=== PATIENT | female | born 1960 | race Caucasian/White ===

== ENCOUNTER 2017-11-30 08:41 | Outpatient (CLI) | payer BC ==
--- NOTE | 2017-11-30 11:00 | RAD ---
RIGHT HIP TWO VIEWS: History: 56-year-old female with history of right hip pain. FINDINGS: Mild degenerative changes without acute fracture or dislocation. Post-operative changes in the lumbar spine. IMPRESSION: Mild degenerative changes right hip joint without fracture or dislocation. POS: OFF
== END 2017-11-30 08:42 | disposition home or self-care (01) ==
LOC: RAD 08:41
PROVIDERS: ATTEND Nurse Practitioner Family
DX: M25.551 Pain in right hip (principal); M16.11 Unilateral primary osteoarthritis, right hip
CPT/HCPCS: 80307; 80326; 80331; 80334; 80337; 80341; 80344; 80346; 80348; 80353; 80354; 80355; 80357; 80358; 80359; 80360; 80361; 80364; 80365; 80366; 80367; 80368; 80370; 80371; 80372; 80377

== ENCOUNTER 2018-03-12 11:47 | Inpatient (IN) | payer BC ==
[2018-03-12] MEDS ORDERED: Nitroglycerin 2% Ointment 1 INCH/1 GM Packet ONE (12:04)
[2018-03-12] MEDS ORDERED: Aspirin 325 MG TAB ONE (12:06)
--- NOTE | 2018-03-12 12:16 | RAD ---
PROTABLE AP CHEST RADIOGRAPH: Date: 03-12-18 History: Chest pain. Comparison: 02-23-16 FINDINGS: Cardiac silhouette and pulmonary vasculature are within normal limits. Lungs are clear. Dorsal column stimulator leads overlie the thoracic spine on today's exam. No other interval change. IMPRESSION: No acute cardiopulmonary process. POS: [facility]
[2018-03-12 12:18] LABS: #Lymphocytes 1.6 thou/uL (1.20-3.40); #Monocytes 0.4 thou/uL (0.11-0.59); #Neutrophils 2.2 thou/uL (1.40-6.50); %Basophils 1.2 % (0.0-1.0); %Monocytes 8.7 % (0.0-10.0); %Neutrophils 51.1 % (42.0-75.0); Hemoglobin 14.6 g/dL (12.0-16.0); Mean Corpuscular HGB CONC 33.8 g/dL (32.0-36.0); Mean Corpuscular Hemoglobin 33.8 pg (27.0-31.0); Mean Corpuscular Volume 99.9 fL (78.0-98.0); Mean Platelet Volume 6.5 fL (7.4-10.4); Platelet Count 226 thou/uL (130-400); RBC Distribution Width 11.8 % (11.5-14.5); Red Blood Cell (RBC) Count 4.31 mill/uL (4.20-5.40); White Blood Cell (WBC) Count 4.3 thou/uL (4.8-10.8)
[2018-03-12 12:38] LABS: ALT (SGPT) 24 U/L (8-55); AST (SGOT) 22 U/L (5-34); Albumin 4.8 g/dL (3.5-5.0); Alkaline Phosphatase 68 U/L (40-150); Anion Gap 12 mmol/L (10-20); BUN (Urea Nitrogen) 14 mg/dL (9.8-20.1); Bilirubin, Total 0.6 mg/dL (0.2-1.2); Calc. Creatinine Clearance 0 mL/min (70-130); Calcium 9.7 mg/dL (7.8-10.44); Carbon Dioxide 26 mmol/L (22-29); Chloride 101 mmol/L (98-107); Estimated GFR-MDRD 72; Globulin 2.8 g/dL (2.4-3.5); Glucose 86 mg/dL (70-105); Potassium 3.5 mmol/L (3.5-5.1); Protein, Total 7.6 g/dL (6.0-8.3); Sodium 135 mmol/L (136-145)
[2018-03-12 12:42] LABS: CKMB 1.2 ng/mL (0-6.6); Troponin I Less than 0.010 ng/mL (< 0.028)
[2018-03-12] MEDS ORDERED: Labetalol HCl 100 MG/20 ML VIAL ONE (12:51)
[2018-03-12 16:02] LABS: Troponin I Less than 0.010 ng/mL (< 0.028)
--- NOTE | 2018-03-12 18:16 | CON ---
DATE OF CONSULTATION: 03/12/2018 REASON FOR CONSULTATION: Chest pain and hypertension. HISTORY OF PRESENT ILLNESS: Mrs. Salinas is a very pleasant 57-year-old white female who comes to [facility] for chest pain. She was actually seen by myself in the office for the first time yesterd ay. She came in for evaluation of hypertension and episodes of chest pain similar to the one she had today. She had been noticing episodes of a stabbing pain in the epigastric area that lasted for abo ut 5 or 10 minutes at a time. The longest one was about 15 minutes. She recently changed PCP's and when she got all her information, she noticed that her blood pressure had been high for a long time a nd nobody had ever told her she had hypertension or treated her for it. On my evaluation yesterday, her blood pressure was 160/105. I rechecked it before the end of the visit and it was down to the 14 0/90 range. She was pain free at that time. We ordered workup for her heart and started her on sam nopril 5 mg daily. She took her first pill this morning and her blood pressure was in the 140s. She was at work, answering some emails nothing out of the ordinary and felt the sudden onset of this sta bbing pain again in the epigastrium. She had been advised yesterday that the pain lasted more than 3 0 minutes to come to the hospital. She started the time at that time and noted that the pain was not going away by min #30. She asked her friend to drive her to the ER, so she was brought in for furth er evaluation. Here, she was found to have very high blood pressures. She was in the 180/150 range and before she received IV labetalol. She had nitro paste already placed and this dropped her blood pressure in the 150s over 100s and she has been feeling much better ever since. She currently denies any chest pain, tightness, pressure, no shortness of breath. She stated by the time she came to the ER, her pain was much better. PAST MEDICAL HISTORY: 1. Newly-diagnosed hypertension. 2. Hyperlipidemia. 3. Osteoarthritis. 4. Gastroesophageal reflux disease. PAST SURGICAL HISTORY: 1. Appendectomy. 2. Cholecystectomy. 3. Tonsillectomy. 4. Lumbar disk replacement. OUTPATIENT MEDICATIONS: Include, 1. Lisinopril 5 mg daily, which was started on her yesterday morning. 2. Aminophylline. 3. Symbicort. 4. Tizanidine 4 mg daily. 5. Prilosec 20 mg a day. 6. [place] 3 fish oil. 7. Ponce 10/325 p.r.n. 8. Celebrex 200 mg a day. 9. Azelastine. ALLERGIES: IODINE and CLINDAMYCIN. REVIEW OF SYSTEMS: A 12-point review of systems was done and is all negative unless stated in the pr story of present illness. FAMILY HISTORY: Noncontributory. SOCIAL HISTORY: No alcohol, tobacco or drugs. REVIEW OF SYSTEMS: A 12-point review of symptoms was done and is negative unless as stated in the pr story of present illness. PHYSICAL EXAMINATION: VITAL SIGNS: Temperature 98.2, pulse 80, respiratory rate 16, satting 98% on room air. Blood pressu re 151/92. GENERAL: Awake, alert, oriented x3, in no distress. HEENT: Normocephalic, atraumatic. NECK: Supple. LUNGS: Clear. CARDIOVASCULAR: S1, S2, no S3, S4, no murmurs. ABDOMEN: Soft, positive bowel sounds. EXTREMITIES: No edema. SKIN: Warm and dry. LABORATORY WORK: Reviewed. CBC is unremarkable. Chemistry is unremarkable. Troponin is negative x 2. CK-MB is negative x1. Albumin was 4.8. EKG was reviewed. It looks the same as yesterday, normal sinus rhythm with the computer reads it is an old inferior RI, however, this is not accurate as there are no Q-waves in the inferior leads. No acute ischemia. Chest x-ray done today showed no acute cardiopulmonary process. ASSESSMENT AND PLAN: 1. Chest pain. 2. Hypertensive emergency. PLAN: 1. We will up titrate her blood pressure regimen. We will increase her dose of lisinopril to 5 mg t wice a day and probably add hydrochlorothiazide daily. We will plan on doing an echocardiogram to ev aluate for LV function and valvular structures. If all this is normal, she should be able to be disc harged home tomorrow. She will get a stress as an outpatient later next week. 2. Continue to monitor on telemetry observation. Thank you for letting us participate in the care of your patient. We will follow.
--- NOTE | 2018-03-12 19:02 | HP ---
CHIEF COMPLAINT: Chest pain and shortness of breath. HISTORY OF PRESENT ILLNESS: The patient is a 57-year-old female who is admitted to the [facility] with acute onset of recurrent chest pain which started around 11:00 this morning. 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 She did not have any nausea or vomiting. She decid ed to come to the hospital/emergency room for further evaluation. Apparently, she saw Dr. Perez, [facility] neurology yesterday who put her on lisinopril 5 mg once a day dose and she took her first dose t his morning. She denied any cough. She denied any fever or chills. She has some heartburn but she takes 2 doses of Prilosec every day for her heartburn which is relatively well controlled. She did n ot have any clammy skin. She had this pain on and off for more over a year and Dr. Perez was faustino ashton to run her through some testing to rule out coronary artery involvement. PAST MEDICAL HISTORY: Positive for: 1. Hypertension. 2. Osteoarthritis. 3. Heartburn. 4. Chronic back pain. PAST SURGICAL HISTORY: 1. Total disk replacement of L3, L4 and L5, and fusion of L5 and S1. 2. Cholecystectomy. 3. Tonsillectomy. 4. Appendectomy. 5. Bilateral breast surgery. 6. 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 ALLERGIES: IV DYE. She has vomiting from CLINDAMYCIN and DARVOCET. SOCIAL HISTORY: She used to smoke half a pack per day for approximately 15 years, but she quit in 24 07. She does not take any illicit drugs. She drinks wine, one, sometimes 2-3 glasses a day. MEDICATIONS: Elavil 100 mg at bedtime, tizanidine 4 mg at bedtime, Prilosec 20 mg twice a day, Celeb diane 200 mg twice a day, hydrocodone 5 mg 3 times a day, lisinopril 5 mg once a day started this elaine ashton, azelastine nasal spray p.r.n., and Symbicort. She did not start taking this yet. FAMILY HISTORY: Her mother had hypertension and NC at the age of 62 and that is how she . Fathe r had lung cancer, at the age of 59, both of them were heavy smokers. REVIEW OF SYSTEMS: CONSTITUTIONAL: Negative for fever and chills. EYES: Negative for eye pain and eye discharge. ENT: Negative for epistaxis and nasal congestion, although from time to time, she has to use azelast ine for nasal congestion. CARDIOVASCULAR: Positive for chest pain. Negative for palpitations. RESPIRATORY: Negative for cough. Positive for shortness of breath during the episode of chest pain. GASTROINTESTINAL: Negative for nausea and vomiting. GENITOURINARY: Negative for hematuria and dysuria. MUSCULOSKELETAL: Positive for back pain. NEUROLOGIC: Negative for headaches and focal deficits. DERMATOLOGIC: Negative for erythema and rash. PHYSICAL EXAMINATION: GENERAL: She is resting in bed comfortably without any significant distress. VITAL SIGNS: Her blood pressure is 132/92, pulse is 78, respiratory rate is 22, pulse oximetry is 97 % on room air. HEENT: Head is atraumatic, normocephalic. Eyes are PERRLA. Sclerae are nonicteric. Oral mucosa is moist. NECK: Supple, no lymphadenopathy. Thyroid is not palpable. LUNGS: Clear. HEART: S1, S2 normal, no S3, no S4, no murmur. ABDOMEN: Soft, nontender, nondistended. Bowel sounds are present, no organomegaly. EXTREMITIES: No clubbing, cyanosis or edema. NEUROLOGIC: She is alert and oriented x4. There is no any sensorimotor deficits present. Cranial n erves are intact. LABORATORY DATA: Showed a white count of 4.3, hemoglobin 14.4, hematocrit 43.1, platelet count 226,0 00. Sodium of 135 and the rest of chemistry within normal limits. Troponin I less than 0.010, CK-MB 1.2. EKG showed normal sinus rhythm with ventricular rate of 84 beats per minute. She has some par tial right bundle branch block and inverted T waves in V1 and V2. No ST segment elevation or any oth er significant changes. Chest x-ray did not show any acute abnormalities. IMPRESSION: 1. Recurrent chest pain of unclear etiology. Rule out acute coronary syndrome. The first set of ca rdiac enzymes within normal limits. 2. Uncontrolled hypertension. The patient is started on lisinopril this morning and she was given n itro paste by emergency room physician. 3. Osteoarthritis. 4. Spinal stimulator present. 5. Hypertension. PLAN: Admission to telemetry. Condition is fair. Activity: Bed rest and bathroom privileges. IV Hep-Lock. Additional 2 sets of cardiac enzymes. Cardiology consultation with Dr. Perez. I contact ed him personally and he would like to control her blood pressure and then do the stress test in his office after she is discharged from the hospital. We will continue her home meds with Elavil 100 mg at bedtime descent, Celebrex 200 mg twice a day, hydrocodone 5 mg 3 times a day, lisinopril 5 mg and she will have additional dose of 5 mg tonight. Also, she will get DVT prophylaxis with SCDs and Love nox 40 mg subcutaneous every 24 hours and will have hydralazine p.r.n. 10 mg every 4-6 hours as neede d for systolic more than 160.
[2018-03-12 19:11] LABS: Troponin I Less than 0.010 ng/mL (< 0.028)
[2018-03-12] MEDS: HYDROcodone/Acetaminophen 5/325 mg Tablet PO SCH ×2 (20:58→21:00)
[2018-03-12] MEDS ORDERED: Enoxaparin Sodium 40 MG/0.4 ML SYRINGE SC SCH (21:00)
[2018-03-12] MEDS ORDERED: Amitriptyline HCl 100 MG TAB PO SCH (21:00)
[2018-03-12] MEDS: CeleCOXIB 100 MG CAP PO SCH (21:01)
[2018-03-12] MEDS: Lisinopril 5 MG TAB PO SCH (21:06)
[2018-03-12 21:51] VITALS: BMI 25.7
[2018-03-12] MEDS: Nitroglycerin 2% Ointment 1 INCH/1 GM Packet TOP SCH (22:52)
[2018-03-13] MEDS ORDERED: Morphine 2 MG/ML SYRINGE SLOW IVP SCH (02:15)
[2018-03-13] MEDS: Nitroglycerin 2% Ointment 1 INCH/1 GM Packet TOP SCH ×2 (06:14→14:29)
[2018-03-13] MEDS ORDERED: Hydrochlorothiazide 25 MG TAB PO SCH (09:00)
[2018-03-13] MEDS: HYDROcodone/Acetaminophen 5/325 mg Tablet PO SCH (09:06)
[2018-03-13] MEDS: Lisinopril 5 MG TAB PO SCH (09:07)
[2018-03-13] MEDS: CeleCOXIB 100 MG CAP PO SCH (09:07)
[2018-03-13 12:32] VITALS: BP 108/67; TEMP 97.4
--- NOTE | 2018-03-13 20:33 | PDOC.CTH ---
Cardiology Progress Note - Subjective No more episodes of chest pain. BP better controlled on current regimen. - Objective Vital Signs Temp Pulse Resp BP BP Pulse Ox 03/13/18 12:00 97.4 F L 97 16 108/67 98 03/13/18 09:07 87 130/74 03/13/18 08:45 98.6 F 87 16 130/74 96 Weight 168 lb 3.2 oz 03/12/18 03/13/18 03/14/18 06:59 06:59 06:59 Intake Total 320 Output Total 950 Balance -630 - Physical Examination General/Neuro: alert & oriented x3, NAD Neck: no JVD present Lungs: CTA, unlabored respirations Heart: RRR Abdomen: NT/ND Extremities: other: (no edema.) - Telemetry Telemetry Rhythm: NSR - Labs Result Diagrams: 03/12/18 12:00 03/12/18 12:00 Troponin/CKMB CK-MB (CK-2) 1.2 ng/mL (0-6.6) 03/12/18 12:00 Troponin I Less than 0.010 ng/mL (< 0.028) 03/12/18 18:32 - Assessment/Plan 1. Chest pain, no ACS. 2. HTN 3. GERD PLAN: - Continue PPI BID - Continue Lisinopril at 5m g BID and HCTZ 12.5 daily. - Will do further risk stratification as an outpatient with a Nuclear treadmill stress test. - May discharge home.
--- NOTE | 2018-03-14 00:02 | DIS ---
DATE OF ADMISSION: 03/12/2018 DATE OF DISCHARGE: 03/13/2018 FINAL DIAGNOSES AT THE TIME OF DISCHARGE: 1. Chest pain, acute coronary artery syndrome was ruled out. The pain has resolved. 2. Uncontrolled hypertension, improved. 3. Osteoarthritis. 4. Spinal stimulator. 5. Chronic back pain. 6. Hypertension. 7. Gastroesophageal reflux disease. RECYCLING OPERATOR: Dr. Perez, Cardiology Service. HOSPITAL COURSE: The patient is a 57-year-old female who was admitted to the hospital with acute onset of chest pain which started when she was sitting at the desk and checking her emails, it started in the substernal area, it is radiated to back to the right scapula, then to her jaw. She f elt somewhat short of breath when it happened. This is a recurrent pain and her cosmetology educator, Dr. Sayda ramachandran, was supposed to set her up for her outpatient evaluation. Recently, she saw him and she was st arted on lisinopril 5 mg once a day for her elevated blood pressure. She came to the emergency room for further evaluation. At the time of evaluation, her blood pressure was 132/92 and her pulse oxime try is 97% on room air. ER evaluation showed white count of 4.3, hemoglobin 14.4, hematocrit 43.1, p latelet count was 22,000. Troponin I was less than 0.010, CK-MB 1.2. EKG showed normal sinus rhythm with ventricular rate of 84 beats per minute. She had partial right bundle-branch block and inverte d T waves in V1 and V2. There was no ST segment elevation or any other significant change. Chest x- ray did not show any acute abnormalities. She got admitted to observation to telemetry floor with IV Hep-Lock. She had additional 2 sets of cardiac enzymes which came back within normal limits. Dr. Dorie cole was consulted. He recommended to improve her blood pressure before she can have any stress michael t, so her original dose of lisinopril was increased to 5 mg twice a day and she had additional medica tions which was hydrochlorothiazide 12.5 mg once a day. Her blood pressure improved significantly, t he next day, she did not have any pain in her chest. Echocardiogram was done, which showed a normal LVEF of 55-60%. There was grade 1 diastolic dysfunction. There was trace mitral tricuspid regurgita tion, mild pulmonic regurgitation, and small pericardial effusion without any tamponade. The patient is doing well. She is examined and evaluated before she is discharged home. There are n o any changes to her physical examination, which is normal. She is discharged home in good condition . ACTIVITY: As tolerated. DISCHARGE MEDICATIONS: We are going to continue her home medications, which Symbicort 1 puff twice a day p.r.n., azelastine 1-2 sprays twice a day to both nostrils, celecoxib 200 mg twice a day, hydroc odone half a tablet of 10 mg 3 times a day, omeprazole 1 mg daily, magnesium 200 mg daily, vitamin D3 10,000 units daily, albuterol 2 puffs q.4 hours p.r.n. as needed, tizanidine 4 mg at bedtime, amitri ptyline 100 mg at bedtime, and she will continue her lisinopril 5 mg twice a day, and aspirin 81 mg o nce a day. She will follow up with Dr. Perez for the outpatient stress test.
--- NOTE | 2018-03-14 10:53 | PQF ---
BEATA Dewitt ZBIGNIEW A MD [id number] [address] [place] [address] [id number] CLINICAL DOCUMENTATION IMPROVEMENT CLARIFICATION FORM: ICD-10 Updated PLEASE DO AN ADDENDUM TO THE PROGRESS NOTE WITH ANY DOCUMENTATION UPDATES OR ADDITIONS AND CARRY THROUGH TO DC SUMMARY. THANK YOU. DATE: 03-14-18 ATTN: DR. RECIO Please exercise your independent, professional judgment in responding to the clarification form. Clinical indicators are provided on the bottom of this form for your review Please check appropriate box(s): [ ] Hypertensive emergency [ ] GERD [ ] Other diagnosis [ ] Unable to determine For continuity of documentation, please document condition throughout progress notes and discharge summary. Thank You. CLINICAL INDICATORS - SIGNS / SYMPTOMS /LABS ED: CP; HYPERTENSIVE URGENCY H&P: HYPERTENSIVE EMERGENCY; CP 03-12 (ALAN): SUDDEN ONSET OF STABBING PAIN IN EPIGASTRIUM NEW DX HTN; GERD; TROPONIN NEGATIVE X 2; CP; HYPERTENSIVE URGENCY DC SUMMARY - ACS RULED OUT RISK FACTORS H&P: GERD; 03-12 (ALAN): NEWLY DIAGNOSED HTN TREATMENTS: CPOE: CE X 2 - NEGATIVE MONITOR ON TELEMETRY 03-12 (ALAN): INCREASE DOSE OF LISINOPRIL TO 5 MG TWICE A DAY; PROBABLY ADD HYDROCHLOROTHIAZIDE DIALY PLAN ON DOING ECHO; STRESS TEST NEXT WEEK THANK YOU, HILLARY (This form is maintained as a part of the permanent medical record) 2014 [employer]. All Rights Reserved Hillary Jacobson RN, BS [email or web address] [employer] [facility]
== END 2018-03-13 14:52 | disposition home or self-care (01) | DRG 305 ==
LOC: ERS 11:47 → 2NO 13:08 → ERHOLD 13:11 → 2NO 18:17
PROVIDERS: ADMIT Internal Medicine; ATTEND Internal Medicine
DX: I16.0 Hypertensive urgency (principal); I31.3 Pericardial effusion (noninflammatory); I16.1 Hypertensive emergency; I10 Essential (primary) hypertension; M19.90 Unspecified osteoarthritis, unspecified site; G89.29 Other chronic pain; M54.9 Dorsalgia, unspecified; K21.9 Gastro-esophageal reflux disease without esophagitis; R07.89 Other chest pain; R68.84 Jaw pain; I45.10 Unspecified right bundle-branch block; I08.1 Rheumatic disorders of both mitral and tricuspid valves; E78.5 Hyperlipidemia, unspecified; F41.9 Anxiety disorder, unspecified; Z87.891 Personal history of nicotine dependence
CPT/HCPCS: 36415; 71045; 80053; 82553; 84484; 85025; 93005; 93306; 94760; J1650

== ENCOUNTER 2018-06-06 07:56 | Outpatient (CLI) | payer BC ==
--- NOTE | 2018-06-06 09:29 | MRI ---
MRI RIGHT KNEE: Date: 06/06/18 PROVIDED CLINICAL HISTORY: Right knee pain. FINDINGS: The anterior cruciate ligament, posterior cruciate ligament. Medial collateral ligament, and lateral collateral ligamentous complex demonstrate an intact MR appearance, as does the extensive mechanism. The medial and lateral menisci demonstrate no evidence for tear. There is no focal articular cartilage defect apparent. There is articular cartilage irregularity invo lving the medial patellar facet and central weightbearing portions of the medial femoral condyle with out full thickness articular cartilage loss apparent. There is a large knee joint effusion. No focal concerning regional marrow or muscular signal abnormal ity is apparent. IMPRESSION: 1. No evidence for internal derangement. 2. 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 3. Large knee joint effusion, somewhat out of proportion to the degree of degenerative change shruthi llanes. POS: Dorie
== END 2018-06-06 07:57 | disposition home or self-care (01) ==
LOC: MRI 07:56
PROVIDERS: ATTEND Orthopaedic Surgery
DX: M17.11 Unilateral primary osteoarthritis, right knee (principal); M25.561 Pain in right knee; M25.461 Effusion, right knee; M94.8X6 Other specified disorders of cartilage, lower leg

== ENCOUNTER 2018-11-05 08:57 | Outpatient (CLI) | payer BC ==
--- NOTE | 2018-11-05 09:43 | RAD ---
RADIOGRAPH LUMBAR SPINE 4 VIEWS: DATE: 11/05/2018 HISTORY: 57-year-old female with acute low back pain COMPARISON: 05/18/2015 TECHNIQUE: AP view. 3 lateral views in flexion, extension, and neutral. FINDINGS: There are 5 lumbar-type vertebrae. There is a new spinal cord stimulator entering the spinal canal at T12-L1 and ascending along the posterior aspect of the thoracic spinal canal, distal portions of leads outside of field of view. Vertebral body heights are maintained. No major spondylolisthesis. T12-L1: Mild endplate osteophytosis. Minimal disc space narrowing. No major interval change. L1-2: Disc space maintained. Mild endplate osteophytosis. L2-3: New finding of mild to moderate disc space narrowing, and greater degree of mild endplate scler osis and osteophytosis. Slight degenerative retrolisthesis of L2 on L3, new. No interval change between flexion and extension. L3-4: Metallic artificial disc again noted. L4-5: Metallic artificial disc again noted. L5-S1: Obliquely oriented screws at disc space from anterior approach, extending into the adjacent in ferior endplate of L5 and inferior endplate of S1, again noted. Vertically oriented thin linear short metallic markers for interbody graft at disc space. No major spondylolisthesis. Flexion occurs in the mid and lower thoracic spine, but very little in th e lumbar spine. No significant change in position between extension and neutral: Limited range of motion during extension. No instability identified. IMPRESSION: 1. Interval placement of dorsal column spinal cord stimulator into the thoracic spine. 2. Interval progression of now mild to moderate degenerative disc disease at L2-3. 3. Old Artificial disks at L3-4 and L4-5. 4. Old anterior interbody fusion hardware at L5-S1. 5. No instability.
== END 2018-11-05 08:58 | disposition home or self-care (01) ==
LOC: RAD 08:57
PROVIDERS: ATTEND Nurse Practitioner Family
DX: M54.5 Low back pain (principal); Z98.1 Arthrodesis status
CPT/HCPCS: 72110

== ENCOUNTER 2019-03-18 14:56 | Outpatient (CLI) | payer BC ==
--- NOTE | 2019-03-18 15:40 | BD ---
EXAM: DEXA bone density examination HISTORY: 58-year-old postmenopausal female for screening COMPARISON: None FINDINGS: Left femoral neck--bone mineral density0.763; T score -0.8 Total proximal left femur--bone mineral density 0.860; T score -0.7 Right femoral neck--bone mineral density0.713; T score -1.2 Total proximal right femur--bone mineral density 0.786; T score -1.3 IMPRESSION: Osteopenia This patient has a 10 year WHO fracture risk of a major osteoporotic fracture of 7.4% and of a hip fracture of 0.5%.
== END 2019-03-18 14:57 | disposition home or self-care (01) ==
LOC: BICMAMMO 14:56
PROVIDERS: ATTEND Internal Medicine
DX: Z13.820 Encounter for screening for osteoporosis (principal); M85.80 Other specified disorders of bone density and structure, unspecified site
CPT/HCPCS: 77080

== ENCOUNTER 2019-05-30 14:31 | Emergency (ER) | payer BC ==
[~2019-05-30 14:31] MED LIST: Iopamidol-370 76% 500 ML 1 ML ONE
[2019-05-30 15:56] LABS: #Basophils 0.1 thou/uL (0.0-0.2); #Lymphocytes 1.2 thou/uL (1.20-3.40); #Monocytes 0.5 thou/uL (0.11-0.59); #Neutrophils 2.6 thou/uL (1.40-6.50); %Eosinophils 0.4 % (0.0-10.0); %Lymphocytes 27.4 % (21.0-51.0); %Neutrophils 58.1 % (42.0-75.0); Hemoglobin 13.4 g/dL (12.0-16.0); Mean Corpuscular HGB CONC 35.2 g/dL (32.0-36.0); Mean Corpuscular Hemoglobin 33.6 pg (27.0-31.0); Mean Corpuscular Volume 95.4 fL (78.0-98.0); Mean Platelet Volume 6.8 fL (7.4-10.4); Platelet Count 243 thou/uL (130-400); RBC Distribution Width 11.2 % (11.5-14.5); Red Blood Cell (RBC) Count 3.97 mill/uL (4.20-5.40); White Blood Cell (WBC) Count 4.4 thou/uL (4.8-10.8)
[2019-05-30 16:18] LABS: ALT (SGPT) 18 U/L (8-55); AST (SGOT) 18 U/L (5-34); Albumin 4.4 g/dL (3.5-5.0); Alkaline Phosphatase 81 U/L (40-110); Anion Gap 9 mmol/L (10-20); BUN (Urea Nitrogen) 7 mg/dL (9.8-20.1); Bilirubin, Total 0.6 mg/dL (0.2-1.2); Calc. Creatinine Clearance 0 mL/min (70-130); Calcium 9.7 mg/dL (7.8-10.44); Carbon Dioxide 34 mmol/L (22-29); Chloride 95 mmol/L (98-107); Estimated GFR-MDRD 83; Globulin 2.7 g/dL (2.4-3.5); Glucose 88 mg/dL (70-105); Protein, Total 7.1 g/dL (6.0-8.3); Sodium 135 mmol/L (136-145)
[2019-05-30] MEDS ORDERED: Potassium Chloride 20 MEQ TAB ONE (16:40)
[2019-05-30] MEDS ORDERED: Famotidine/PF 20 mg/2ml Vial ONE (16:59)
[2019-05-30] MEDS ORDERED: diphenhydrAMINE 50 MG/ML VIAL ONE (16:59)
[2019-05-30] MEDS ORDERED: methylPREDNISolone Sod Succ/PF 125 MG/2 ML VIAL ONE (16:59)
--- NOTE | 2019-05-30 18:27 | CT ---
CT ABDOMEN AND PELVIS WITH IV CONTRAST 05/30/2019 CLINICAL INFORMATION: Left lower quadrant abdominal pain COMPARISON: None. Technique: Multiple contiguous axial CT images are obtained through the abdomen and pelvis with IV contrast. Cor onal reformatted images are provided. FINDINGS: Lower Chest: Bibasilar atelectasis is present. Vessels: Mild vascular calcifications and atherosclerotic plaque is seen in the abdominal aorta and i nvolving the iliac arteries. Abdomen: Portal vein:Patent Gallbladder: Surgically absent. Liver: within normal limits. Spleen: within normal limits. Pancreas: Mild fatty replacement. No definite pancreatic lesion is seen. Adrenals: within normal limits. Kidneys: A 3 cm fluid attenuation cystic lesion is seen in the superior pole right kidney compatible with a cyst. A few subcentimeter too small to characterize hypodense lesions are seen in the left kidney. Bowel: The colon is fluid-filled. There is no colonic wall thickening appreciated. The ileocecal valv e demonstrates prominent fat attenuation. There is question of slight adjacent inflammatory changes which is overall nonspecific. No bowel wall thickening is appreciated in this region. Loops of small bowel are normal in caliber. Appendix: Not visualized. There are surgical clips seen adjacent to the cecal apex and in the right l ower quadrant. This could potentially be related to prior appendectomy. Clinical correlation is suggested. Peritoneum: No ascites or free air; no fluid collection. Mesentery and Retroperitoneum: No enlarged mesenteric or retroperitoneal lymph nodes. Abdominal Wall: Very small supraumbilical ventral fat-containing abdominal wall hernia is present. Pelvis: Reproductive Organs: No pelvic masses. Pelvis within normal limits. Bladder: Incompletely distended but otherwise grossly within normal limits. Bones: A dorsal column stimulator device is noted in place with dorsal column stimulator leads extend ing superiorly to overlie the mid thoracic spine. Postsurgical changes lumbar spine are present. Metallic intradiscal prostheses are seen at the L3-4 and L4-5 levels with evidence of anterior fusion at the L5-S1 level. Degenerative changes are seen in the spine. There is a hemangioma in the T12 vertebral body. IMPRESSION: 1. The colon is fluid-filled without evidence of colonic wall thickening. There is fatty replacement of the ileocecal valve with suggestion of minimal adjacent inflammatory changes seen in this region adjacent to the terminal ileum of uncertain etiology. This could be related to a mild inflammatory or infectious process. No thickening is appreciated involving the terminal ileum. 2. Normal caliber loops of small bowel. 3. Postcholecystectomy changes. 4. Right renal cyst with subcentimeter too small to characterize hypodense lesions left kidney.
== END 2019-05-30 19:20 | disposition home or self-care (01) ==
LOC: ERS 14:31
DX: K52.9 Noninfective gastroenteritis and colitis, unspecified (principal); E87.6 Hypokalemia; M19.90 Unspecified osteoarthritis, unspecified site; I10 Essential (primary) hypertension; F41.9 Anxiety disorder, unspecified; Z87.891 Personal history of nicotine dependence
CPT/HCPCS: 36415; 74177; 80053; 83690; 83735; 85025; 87324; 87449; 93005; 93010; 96361; 96374; 96375; J1200; J2930; Q9967; S0028

== ENCOUNTER 2019-09-08 11:29 | Outpatient (CLI) | payer BC ==
--- NOTE | 2019-09-08 13:25 | MRI ---
MRI RIGHT HIP PERFORMED WITHOUT CONTRAST ENHANCEMENT: History: Right hip pain, more in the lateral aspect of the hip. FINDINGS: Post-operative changes of the lower lumbar spine are present. The SI joints are symmetric. There are no signs of any pelvic insufficiency type fracture. Small field of view images of the right hip were performed. This shows a slightly irregular appearanc e to the anterior superior labrum suggestive more of some fraying. There is no evidence of any abnorm ality to the femoral head other than some minimal articular cartilage loss. There are moderate tendinosis changes of the hamstring tendon origin and more specifically, these natali nges are related to the semimembranosis tendon. The quadratus femoris muscle shows some edema change adjacent to this area which may just be reactive change or related to some mild muscle strain at this level. The sciatic nerve shows normal signal. There is some mild to moderate tendinosis of the gluteus medius tendon, more at the muscular attachme nt. There is more severe change involving the gluteus minimus tendon insertion with an associated mod erate grade tear. There is no any significant trochanteric bursitis type changes seen. IMPRESSION: 1. Mild to moderate tendinosis to the gluteus medius tendon insertion with more pronounced tendinosis changes and a moderate grade partial tear of the gluteus medius tendon insertion. 2. Tendinosis of the hamstring tendon origin is specifically the semimembranosis tendon. There is als o some edema change at the level of the quadratus femoris muscle directly adjacent to this area. This could represent some reactive edema change or some mild muscle strain. POS: [facility]
== END 2019-09-08 11:30 | disposition home or self-care (01) ==
LOC: MRI 11:29
PROVIDERS: ATTEND Orthopaedic Surgery
DX: M70.61 Trochanteric bursitis, right hip (principal); M16.11 Unilateral primary osteoarthritis, right hip; S76.011A Strain of muscle, fascia and tendon of right hip, initial encounter; M67.951 Unspecified disorder of synovium and tendon, right thigh; R60.0 Localized edema

== ENCOUNTER 2020-08-21 09:47 | Emergency (ER) | payer BC, OTHER ==
[2020-08-21] MEDS ORDERED: Morphine 4 MG/ML VIAL ONE (10:05)
[2020-08-21] MEDS ORDERED: HYDROcodone/Acetaminophen 7.5/325 mg Tablet ONE (11:13)
== END 2020-08-21 11:39 | disposition home or self-care (01) ==
LOC: ERS 09:47
DX: S52.022A Displaced fracture of olecranon process without intraarticular extension of left ulna, initial encounter for closed fracture (principal); M19.90 Unspecified osteoarthritis, unspecified site; I10 Essential (primary) hypertension; Z79.899 Other long term (current) drug therapy; W18.30XA Fall on same level, unspecified, initial encounter; Y93.01 Activity, walking, marching and hiking
CPT/HCPCS: 29105; 96374; J2270

== ENCOUNTER 2021-04-06 08:08 | Outpatient (CLI) | payer BC | END 2021-04-06 08:09 | disposition home or self-care (01) | LOC: BICMAMMO 08:08 | PROVIDERS: ATTEND Internal Medicine | DX: Z12.31 Encounter for screening mammogram for malignant neoplasm of breast (principal); Z13.820 Encounter for screening for osteoporosis; Z78.0 Asymptomatic menopausal state; M85.851 Other specified disorders of bone density and structure, right thigh; M85.852 Other specified disorders of bone density and structure, left thigh; Z98.890 Other specified postprocedural states; Z91.89 Other specified personal risk factors, not elsewhere classified | CPT/HCPCS: 77063; 77067; 77080 ==

== ENCOUNTER 2021-11-16 06:56 | Outpatient (CLI) | payer BC | END 2021-11-16 06:57 | disposition home or self-care (01) | LOC: BICULT 06:56 | PROVIDERS: ATTEND Internal Medicine | DX: R82.2 Biliuria (principal); N28.1 Cyst of kidney, acquired | CPT/HCPCS: 76705 ==

== ENCOUNTER 2022-06-19 07:56 | Outpatient (CLI) | payer BC | END 2022-06-19 07:57 | disposition home or self-care (01) | LOC: BICMAMMO 07:56 | PROVIDERS: ATTEND Internal Medicine | DX: Z12.31 Encounter for screening mammogram for malignant neoplasm of breast (principal); Z91.89 Other specified personal risk factors, not elsewhere classified; Z98.890 Other specified postprocedural states | CPT/HCPCS: 77063; 77067 ==

== ENCOUNTER 2022-08-31 15:15 | Outpatient (CLI) | payer BC | END 2022-08-31 15:16 | disposition home or self-care (01) | LOC: BICRAD 15:15 | PROVIDERS: ATTEND Nurse Practitioner Family | DX: M53.3 Sacrococcygeal disorders, not elsewhere classified (principal); Z98.890 Other specified postprocedural states | CPT/HCPCS: 72170; 72220 ==

== ENCOUNTER 2023-10-31 15:07 | Outpatient (CLI) | payer BC ==
[2023-10-31 16:09] LABS: Bilirubin 3+ (Negative); Blood, Urine Negative (Negative); Clarity Clear (Clear); Glucose, Urine (Dipstick) Normal (Negative); Ketone, Urine Negative (Negative); Leukocyte Negative (Negative); Nitrite Negative (Negative); Protein, Urine (Dipstick) Negative (Neg-Trace); Urobilinogen Normal mg/dL (Less than 2)
[2023-10-31 16:12] LABS: Hematocrit 31.9 % (34.9-44.5); Hemoglobin 11.2 g/dL (12.0-15.5); Mean Corpuscular HGB CONC 35.1 g/dL (32.0-36.0); Mean Corpuscular Hemoglobin 32.2 pg (27.0-33.0); Mean Corpuscular Volume 91.7 fL (81.6-98.3); Mean Platelet Volume 8.8 fL (7.4-10.4); Platelet Count 273 10x3/uL (150-450); Red Blood Cell (RBC) Count 3.48 10x6/uL (3.90-5.03); White Blood Cell (WBC) Count 5.8 10x3/uL (3.5-10.5)
[2023-10-31 16:33] LABS: Bacteria/HPF Rare-Few HPF (None Seen); RBC/HPF 0-3 HPF (0-3); Squamous Epithelial 0-3 HPF (0-3); WBC/HPF None Seen HPF (0-3)
[2023-10-31 16:34] LABS: Anion Gap 13 mmol/L (10-20); BUN (Urea Nitrogen) 18 mg/dL (9.8-20.1); Calc. Creatinine Clearance 0 mL/min (70-130); Calcium 9.3 mg/dL (7.8-10.44); Carbon Dioxide 28 mmol/L (23-31); Chloride 99 mmol/L (98-107); Estimated GFR 75; Glucose 87 mg/dL (80-115); Potassium 4.1 mmol/L (3.5-5.1); Prothrombin Time 10.9 sec (9.5-12.1); Sodium 136 mmol/L (136-145)
== END 2023-10-31 15:08 | disposition home or self-care (01) ==
LOC: LABBT 15:07
PROVIDERS: ATTEND Urology
DX: Z01.818 Encounter for other preprocedural examination (principal); N13.5 Crossing vessel and stricture of ureter without hydronephrosis; N39.0 Urinary tract infection, site not specified; M47.27 Other spondylosis with radiculopathy, lumbosacral region; K59.09 Other constipation; M54.50 Low back pain, unspecified; G89.29 Other chronic pain
CPT/HCPCS: 71046; 80048; 81001; 85027; 85610; 85730; 86850; 86900; 86901; 87086; 93005; 93010

== ENCOUNTER 2023-11-15 06:12 | Observation (INO) | payer BC ==
[2023-10-31 15:30] VITALS: BMI 27.0
[2023-11-15] MEDS ORDERED: LevoFLOXacin D5W 500 mg (100 mL) BAG ONE (06:55)
[2023-11-15] MEDS ORDERED: EPINEPHrine 1 MG/ML VIAL ONE (07:07)
[2023-11-15] MEDS ORDERED: Bupivacaine PF 0.5% 30 ML VIAL ONE (07:07)
[2023-11-15] MEDS ORDERED: Midazolam HCl 2 mg/2 ml Vial ONE (07:08)
[2023-11-15] MEDS ORDERED: Lidocaine 1% PF 5 ML VIAL ONE (07:08)
[2023-11-15] MEDS ORDERED: Rocuronium Bromide 10 MG/ML (10ML VIAL) ONE (07:08)
[2023-11-15] MEDS ORDERED: fentaNYL PF 100 MCG/2 ML SYRINGE ONE ×3 (07:08→11:58)
[2023-11-15] MEDS ORDERED: Dexamethasone 4 mg/ml Vial ONE (07:08)
[2023-11-15] MEDS ORDERED: PROPOFOL 20 ML ONE (07:08)
[2023-11-15] MEDS ORDERED: Ondansetron PF 4 MG/2 ML Vial ONE (07:08)
[2023-11-15] MEDS ORDERED: CEFAZOLIN 2 GM VIAL ONE (07:27)
[2023-11-15] MEDS ORDERED: Sodium Chloride 0.9% 100 ML ONE (07:27)
[2023-11-15] MEDS ORDERED: Indocyanine Green 25 MG/10 ML VIAL ONE ×2 (07:57→09:01)
[2023-11-15] MEDS ORDERED: ePHEDrine Sulfate 50 MG/10 ML VIAL ONE (08:27)
[2023-11-15] MEDS ORDERED: Bupivacaine 0.25% HCL 30 ML VIAL ONE (08:31)
[2023-11-15] MEDS ORDERED: SUGAMMADEX SODIUM 200 MG/2 ML VIAL ONE (10:56)
[2023-11-15] MEDS ORDERED: fentaNYL 50 mcg/mL 1 mL Vial ONE ×2 (12:51→13:41)
[2023-11-15] MEDS ORDERED: diphenhydrAMINE 50 MG/ML VIAL IVP PRN (13:01)
[2023-11-15] MEDS ORDERED: hydrALAZINE 20 MG/ML VIAL SLOW IVP PRN (13:01)
[2023-11-15] MEDS ORDERED: Bisacodyl 10 MG SUPP PR PRN (13:01)
[2023-11-15] MEDS ORDERED: Oxybutynin 5 MG TAB PO PRN (13:01)
[2023-11-15] MEDS ORDERED: Mag-Al 1200 mg/1200 mg/30 ML UDCUP PO PRN (13:01)
[2023-11-15] MEDS ORDERED: fentaNYL 50 mcg/mL 1 mL Vial SLOW IVP PRN (13:30)
[2023-11-15] MEDS ORDERED: HYDROmorphone 0.5 MG/0.5 ML SYRINGE ONE (14:14)
[2023-11-15] MEDS: Ketorolac Tromethamine 30 MG (1 mL) VIAL IVP SCH (15:54)
[2023-11-15] MEDS: Sodium Chloride 0.9% 1,000 ML IV SCH (15:55)
[2023-11-15 16:07] LABS: Hematocrit 33.7 % (36.0-47.0); Hemoglobin 11.2 g/dL (12.0-16.0); Mean Corpuscular HGB CONC 33.2 g/dL (32.0-36.0); Mean Corpuscular Hemoglobin 30.8 pg (27.0-31.0); Mean Corpuscular Volume 92.6 fL (78.0-98.0); Mean Platelet Volume 8.6 fL (7.4-10.4); Platelet Count 222 10x3/uL (130-400); RBC Distribution Width 12.7 % (11.5-14.5); Red Blood Cell (RBC) Count 3.64 mill/uL (4.20-5.40)
[2023-11-15] MEDS: cefOXitin Sodium 1 GM in Sodium Chloride 0.9% 100 ML IVPB SCH (16:17)
[2023-11-15] MEDS: Hyoscyamine SL 0.125 MG TAB SL PRN (16:17)
[2023-11-15] MEDS: traMADol HCl 50 MG TAB PO SCH (16:17)
[2023-11-15 16:22] LABS: Anion Gap 13 mmol/L (10-20); BUN (Urea Nitrogen) 11 mg/dL (9.8-20.1); Calc. Creatinine Clearance 88 mL/min (70-130); Calcium 9.2 mg/dL (7.8-10.44); Carbon Dioxide 28 mmol/L (23-31); Chloride 100 mmol/L (98-107); Estimated GFR 80; Glucose 116 mg/dL (80-115); Potassium 4.1 mmol/L (3.5-5.1); Sodium 137 mmol/L (136-145)
[2023-11-15] MEDS: Acetaminophen 500 MG TAB PO SCH (17:58)
[2023-11-15] MEDS: oxyCODONE 5 MG TAB PO PRN (19:07)
[2023-11-15] MEDS: DULoxetine 60 MG CAP PO SCH (20:45)
[2023-11-15] MEDS: Docusate 100 MG CAP PO SCH (20:45)
[2023-11-15] MEDS: Cyclobenzaprine 10 MG TAB PO SCH (20:45)
[2023-11-15] MEDS: Carvedilol 6.25 MG TAB PO SCH (20:46)
[2023-11-15] MEDS: Pantoprazole DR 40 MG TAB PO SCH (20:46)
[2023-11-16 05:12] LABS: #Basophils 0.04 10x3/uL (0.0-0.2); %Basophils 0.6 % (0.0-1.0); %Eosinophils 1.7 % (0.0-10.0); %Lymphocytes 11.6 % (21.0-51.0); %Neutrophils 76.8 % (42.0-75.0); Hematocrit 29.3 % (36.0-47.0); Hemoglobin 9.7 g/dL (12.0-16.0); Mean Corpuscular HGB CONC 33.1 g/dL (32.0-36.0); Mean Corpuscular Hemoglobin 29.7 pg (27.0-31.0); Mean Corpuscular Volume 89.6 fL (78.0-98.0); Mean Platelet Volume 8.8 fL (7.4-10.4); Platelet Count 224 10x3/uL (130-400); RBC Distribution Width 12.9 % (11.5-14.5); Red Blood Cell (RBC) Count 3.27 mill/uL (4.20-5.40)
[2023-11-16 05:33] LABS: Anion Gap 12 mmol/L (10-20); BUN (Urea Nitrogen) 10 mg/dL (9.8-20.1); Calc. Creatinine Clearance 85 mL/min (70-130); Calcium 8.1 mg/dL (7.8-10.44); Carbon Dioxide 25 mmol/L (23-31); Chloride 99 mmol/L (98-107); Estimated GFR 76; Glucose 91 mg/dL (80-115); Potassium 3.5 mmol/L (3.5-5.1); Sodium 132 mmol/L (136-145)
[2023-11-16] MEDS: Hydrochlorothiazide 25 MG TAB PO SCH (09:37)
[2023-11-16] MEDS: oxyCODONE 5 MG TAB PO PRN (10:26)
[2023-11-16 11:50] LABS: Hematocrit 28.2 % (36.0-47.0); Hemoglobin 9.5 g/dL (12.0-16.0)
[2023-11-17 05:31] LABS: #Basophils 0.03 10x3/uL (0.0-0.2); %Basophils 0.4 % (0.0-1.0); %Eosinophils 3.5 % (0.0-10.0); %Lymphocytes 6.9 % (21.0-51.0); %Monocytes 6.4 % (0.0-10.0); %Neutrophils 82.4 % (42.0-75.0); Hematocrit 28.8 % (36.0-47.0); Hemoglobin 9.6 g/dL (12.0-16.0); Mean Corpuscular HGB CONC 33.3 g/dL (32.0-36.0); Mean Corpuscular Hemoglobin 30.9 pg (27.0-31.0); Mean Corpuscular Volume 92.6 fL (78.0-98.0); Mean Platelet Volume 8.7 fL (7.4-10.4); Platelet Count 195 10x3/uL (130-400); RBC Distribution Width 13.2 % (11.5-14.5); Red Blood Cell (RBC) Count 3.11 mill/uL (4.20-5.40)
[2023-11-17 05:36] LABS: Hematocrit 28.4 % (36.0-47.0); Hemoglobin 9.6 g/dL (12.0-16.0); Mean Corpuscular HGB CONC 33.8 g/dL (32.0-36.0); Mean Corpuscular Hemoglobin 31.3 pg (27.0-31.0); Mean Corpuscular Volume 92.5 fL (78.0-98.0); Mean Platelet Volume 8.7 fL (7.4-10.4); Platelet Count 201 10x3/uL (130-400); RBC Distribution Width 13.1 % (11.5-14.5); Red Blood Cell (RBC) Count 3.07 mill/uL (4.20-5.40)
[2023-11-17 05:40] LABS: Anion Gap 11 mmol/L (10-20); BUN (Urea Nitrogen) 15 mg/dL (9.8-20.1); Calc. Creatinine Clearance 83 mL/min (70-130); Calcium 8.4 mg/dL (7.8-10.44); Carbon Dioxide 25 mmol/L (23-31); Chloride 100 mmol/L (98-107); Estimated GFR 74; Glucose 97 mg/dL (80-115); Potassium 3.8 mmol/L (3.5-5.1); Sodium 132 mmol/L (136-145)
[2023-11-17 07:50] VITALS: BP 116/70; TEMP 97.9
[2023-11-17] MEDS ORDERED: BUPRENORPHINE 10 MCG TOP SCH (09:00)
== END 2023-11-17 11:20 | disposition home or self-care (01) ==
LOC: SDC 06:12 → SURG A 15:02
PROVIDERS: ADMIT Urology; ATTEND Urology
PROC: 0TQ74ZZ Repair Left Ureter, Percutaneous Endoscopic Approach (ICD-10-PCS; principal; 2023-11-17)
DX: N13.5 Crossing vessel and stricture of ureter without hydronephrosis (principal); I47.20 Ventricular tachycardia, unspecified; I10 Essential (primary) hypertension; E78.5 Hyperlipidemia, unspecified; M19.90 Unspecified osteoarthritis, unspecified site; M47.899 Other spondylosis, site unspecified; K21.00 Gastro-esophageal reflux disease with esophagitis, without bleeding; Z90.89 Acquired absence of other organs; Z91.041 Radiographic dye allergy status; Z88.1 Allergy status to other antibiotic agents; Z98.890 Other specified postprocedural states
CPT/HCPCS: 36415; 74018; 80048; 85025; 85027; 86850; 86900; 86901; 96365; 96366; 96375; 96376; A4314; C1713; C2617; G0378; J0171; J0665; J0694; J1100; J1170; J1885; J1956; J2250; J2405; J2704; J3010; J3490; J7050

== ENCOUNTER 2024-02-27 10:53 | Outpatient (CLI) | payer MEDICARE | END 2024-02-27 10:54 | disposition home or self-care (01) | LOC: BICULT 10:53 | PROVIDERS: ATTEND Urology | DX: N13.5 Crossing vessel and stricture of ureter without hydronephrosis (principal); N28.1 Cyst of kidney, acquired | CPT/HCPCS: 76770 ==